=== PATIENT | male | born 1970 ===

== ENCOUNTER → 2018-11-10 21:54 | Outpatient (REF) | payer OTHER, SELFPAY ==
[2018-11-10 22:46] LABS: Cholesterol 237 mg/dL (140-199); HDL Cholesterol 40 mg/dL (40-60); LDL Cholesterol Calculated 178 mg/dL (<100); Triglycerides 97 mg/dL (35-150)
== END ==
LOC: LAB 21:54
PROVIDERS: Visit Provider Family Medicine
DX: E78.00 Pure hypercholesterolemia, unspecified (principal)
CPT/HCPCS: 36415; 80061